=== PATIENT | female | born 1995 | race Caucasian/White ===

== ENCOUNTER 2017-02-05 11:45 | Emergency (ER) ==
[2017-02-05 11:45] VITALS: BMI 58.1
[2017-02-05 11:50] VITALS: BP 182/86; TEMP 98
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
--- NOTE | 2017-02-05 13:44 | DI ---
Exam: Three x-rays of the right foot. Comparison: 02/05/2017. Reason for exam: Pain. FINDINGS: No acute fracture or malalignment. The joint spaces are well maintained. No unexplained calcific soft tissue density or radiopaque retained foreign body. Impression: No acute fracture or dislocation in the right foot
--- NOTE | 2017-02-05 13:44 | DI ---
Exam: Three x-rays of the right ankle. Comparison: None available. Reason for exam: Pain. FINDINGS: No acute fracture or dislocation. The talar dome is intact. There is no abnormal widenin g of the medial or lateral clear space. Moderate amount of soft tissue swelling is seen adjacent to t he ankle. Impression: No acute fracture or malalignment is seen in the right ankle.
== END 2017-02-05 13:29 | disposition home or self-care (01) ==
LOC: ED 11:45
DX: M25.571 Pain in right ankle and joints of right foot (principal); W19.XXXA Unspecified fall, initial encounter
CPT/HCPCS: 99282

== ENCOUNTER 2018-10-09 16:59 | Emergency (ER) ==
[2018-10-09 17:08] VITALS: BP 162/101; TEMP 97.8; BMI 65.2
--- NOTE | 2018-10-09 17:29 | ED.PDOC ---
General ED Provider: Dr. KHOA LAWSON Chief Complaint: Dizziness Stated Complaint: Dizzines worse past week; 2 falls during this period - last one on and then saw Dr. Garcia on Wednesday. Referred to neurologist - apt November. Back pain and headache - thinks back pain is from falls. Headache - hit head (right forehead) times 2 with falls. confirms falls - found her down in bathroom and obvious hit head on bathtub. Says he has to steady her with walking in house. Time Seen by Physician: 17:15 Mode of Arrival: Wheelchair Information Source: Patient Primary Care Provider: JAMES GARCIA Nursing and Triage Documentation Reviewed and Agree: Yes Does patient meet sepsis criteria?: No System Inflammatory Response Syndrome: Not Applicable Sepsis Protocol: For patient's 13 years and over: Temp is 96.8 and below OR 101 and greater Pulse >90 BPM Resp >20/minute Acutely Altered Mental Status Are patient's symptoms suggestive of a new infection, such as: -Pneumonia -Skin, Soft Tissue -Endocarditis -UTI -Bone, Joint Infection -Implantable Device -Acute Abdominal Infection -Wound Infection -Meningitis -Blood Stream Catheter Infection -Unknown Neurological Complaint Exam - Dizziness Complaint/Exam Last Known Well: Severa years ago Duration: Several years; worse last week or so Symptoms Are: Still present Timing: Constant Episodes Lasting: Days Initial Severity: Moderate Current Severity: Moderate Character: Reports: Lightheaded, Weak, Dizzy Aggravating: Reports: None Alleviating: Reports: None Associated Signs and Symptoms: Reports: Nausea Related History: Similar episode (May 23 and two visits [facility]; chart reviewed - similar to present presentaiton; heart rate was noted to historically be elevated 103 to 108 range) Related Surgical History: Reports: None JVD Present: No Carotid Bruit Present: No Review of Systems - Review Of Systems Constitutional: Reports: Weakness Eyes: Reports: Photophobia Respiratory: Reports: No symptoms Cardiac: Reports: No symptoms Musculoskeletal: Reports: Back pain (bt elieves secondary to falls) Skin: Reports: Bruising (slight ecchymosis R forehead) Neurological: Reports: Other (dizziness) All Other Systems: Reviewed and Negative Past Medical History - Past Medical History Previously Healthy: Yes Endocrine: Reports: None Cardiovascular: Reports: None Respiratory: Reports: None Hematological: Reports: None Gastrointestinal: Reports: None Genitourinary: Reports: None Neuro/Psych: Reports: Anxiety, Depression Musculoskeletal: Reports: Other Cancer: Reports: None Last Menstrual Period: 06/11/18 I'm very irreg. - Surgical History General Surgical History: Reports: Appendectomy, Cholecystectomy - Family History Family History: Reports: Unknown - Social History Smoking Status: Current every day smoker Hx Substance Use: No Alcohol Screening: Occasionally Physical Exam - Physical Exam Appearance: Well-appearing Ill-appearing: None Pain Distress: Mild Eyes: HUMBERTO, EOMI (has some difficult breaking fusion of gaze - quickly regains it - all 4 quadrants intact) ENT: Ears normal, Nose normal, Oropharynx normal Neck: Supple Respiratory: Airway patent, Breath sounds clear, Breath sounds equal, Respirations nonlabored Cardiovascular: RRR, Pulses normal GI/: Soft, Nontender Musculoskeletal: Normal strength, ROM intact, No edema Skin: Warm, Dry, Normal color Neurological: Sensation intact, Motor intact, Alert, Oriented Psychiatric: Affect appropriate, Mood appropriate Interpretation - Radiology Interpretation Radiology Interpretation By: Radiologist Radiology Results: Negative Exam Interpreted: CT Scan - EKG Interpretation Time of EKG #1: 17:42 Rate: Tachy (103) Rhythm: Sinus Ectopy: None [place]: NL ST Segment: Normal Interpretation: No acute changes Physician Notification - Case Discussed Physician Notified: Dr Garcia Time of Notification: 19:15 (Hospitalist Korina for admission) Physician Notified: Dr Trevizo/Tyrone Hui Time of Notification: 19:35 Critical Care Note - Critical Care Note Total Time (mins): 35 Comments: CT review;labs, records from [facility]; discussion with Primary Care provider. Course - Course Hematology/Chemistry: 10/09/18 17:39 10/09/18 17:39 Orders, Labs, Meds: Lab Review 10/09/18 10/09/18 10/09/18 17:39 17:39 17:39 WBC 7.58 RBC 4.55 Hgb 13.4 Hct 39.3 MCV 86.4 MCH 29.5 MCHC 34.1 RDW Coeff of [place] 12.4 Plt Count 254 Immature Gran % (Auto) 0.5 Neut % (Auto) 64.5 Lymph % (Auto) 22.7 [place] % (Auto) 8.6 Eos % (Auto) 2.8 Baso % (Auto) 0.9 Immature Gran # (Auto) 0.0 Neut # (Auto) 4.9 Lymph # (Auto) 1.7 [place] # (Auto) 0.7 Eos # (Auto) 0.2 Baso # (Auto) 0.1 Sodium 136.8 Potassium 4.29 Chloride 97.9 L Carbon Dioxide 28.4 Anion Gap 14.79 BUN 7.9 Creatinine 0.62 Estimated GFR (MDRD) 119.00 BUN/Creatinine Ratio 12.74 Glucose 136.3 H Calcium 9.11 Total Bilirubin 0.57 AST 69.8 H ALT 67.9 H Alkaline Phosphatase 80.5 Total Protein 7.52 Albumin 4.32 Globulin 3.20 Albumin/Globulin Ratio 1.35 Serum , Qual Negative Orders Category Date Time Status EKG-(ED ONLY) Stat CARDIO 10/09/18 17:29 Completed CBC W/ AUTO DIFF Stat LAB 10/09/18 17:39 Completed COMPREHENSIVE METABOLIC PANEL Stat LAB 10/09/18 17:39 Completed SERUM TEST [SERUM ] Stat LAB 10/09/18 17:39 Completed Hydromorphone HCl [Dilaudid 1 mg/ml Syringe] MEDS 10/09/18 17:30 Discontinued 1 mg IVP ONCE STA Hydromorphone HCl [Dilaudid 1 mg/ml Syringe] MEDS 10/09/18 19:52 Discontinued 2 mg .ROUTE .STK-MED ONE Hydromorphone HCl/Pf [Dilaudid 4 mg/ml Syringe] MEDS 10/09/18 19:33 Discontinued 2 mg IVP ONCE STA Ondansetron HCl/Pf [Zofran 4 mg/2 ml] MEDS 10/09/18 17:31 Discontinued 4 mg IVP ONCE STA Sodium Chloride 0.9% [Sodium Chloride] 1,000 ml MEDS 10/09/18 17:[address] HEAD W/O CONTRAST Stat RADS 10/09/18 17:32 Completed Medications Discontinued Medications Generic Name Dose Route Start Last Admin Trade Name Freq PRN Reason Stop Dose Admin Hydromorphone HCl 1 mg 10/09/18 17:30 10/09/18 18:00 Dilaudid 1 Mg/Ml Syringe IVP 10/09/18 17:31 1 mg ONCE STA Administration Hydromorphone HCl 2 mg 10/09/18 19:33 10/09/18 20:01 Dilaudid 4 Mg/Ml Syringe IVP 10/09/18 19:34 Not Given ONCE STA Sodium Chloride 1,000 mls @ 1,000 mls/hr 10/09/18 17:30 10/09/18 18:00 Sodium Chloride IV 10/09/18 18:29 1,000 mls/hr BOLUS STA Administration Ondansetron HCl 4 mg 10/09/18 17:31 10/09/18 18:00 Zofran 4 Mg/2 Ml IVP 10/09/18 17:32 4 mg ONCE STA Administration Vital Signs: Temp Pulse Resp BP Pulse Ox 10/09/18 16:59 97.8 F 119 H 20 162/101 H 97 Departure - Departure Time of Disposition: 19:43 Disposition: TSF SHORT-TRM HOSP Discharge Problem: Syncope Qualifiers: Syncope type: unspecified Qualified Code(s): R55 - Syncope and collapse Instructions: Syncope (ED) Condition: Stable Pt referred to PMD for follow-up: Yes (Follow up with primary care after care at [facility]) MP verified?: No (Not applicable) Allergies/Adverse Reactions: Allergies No Known Allergies Allergy (Verified 10/09/18 17:03) Home Medications: Ambulatory Orders Amitriptyline HCl [Elavil] 50 mg PO BEDTIME 10/09/18 Diphenhydramine HCl [Benadryl] 25 mg PO ONCE PRN 10/09/18 Duloxetine HCl [Cymbalta] 60 mg PO DAILY 10/09/18
[2018-10-09] MEDS ORDERED: SODIUM CHLORIDE 1,000 ML IV STA (17:30)
[2018-10-09] MEDS ORDERED: DILAUDID 1 MG/ML SYRINGE IVP STA (17:30)
[2018-10-09] MEDS ORDERED: ZOFRAN 4 MG/2 ML IVP STA (17:31)
--- NOTE | 2018-10-09 18:23 | CT ---
EXAM: CT of the head without contrast History: Headache and dizziness. Comparison: None available. Technique: Multiplanar CT images through the head were obtained without the administration of IV con trast Findings: The visualized paranasal sinuses and mastoid air cells are clear in general. No acute calvarial abno rmalities. Intracranially the ventricular and cisternal spaces are normal in size, shape and configuration for a patient of this age. No dominant mass or midline shift. No hydrocephalous. No acute intracranial hemorrhage or abnormal extraaxial fluid collections. Impression: No acute intracranial process
[2018-10-09] MEDS ORDERED: DILAUDID 4 MG/ML SYRINGE IVP STA (19:33)
[2018-10-09] MEDS ORDERED: DILAUDID 1 MG/ML SYRINGE ONE (19:52)
== END 2018-10-09 20:15 | disposition short-term general hospital (02) ==
LOC: ED 16:59
DX: R55 Syncope and collapse (principal); S00.83XA Contusion of other part of head, initial encounter; W19.XXXA Unspecified fall, initial encounter; R42 Dizziness and giddiness; M54.9 Dorsalgia, unspecified; R51 Headache; R29.6 Repeated falls; R11.0 Nausea; R53.1 Weakness; F17.210 Nicotine dependence, cigarettes, uncomplicated
CPT/HCPCS: 36415; 80053; 84703; 85025; 93005; 93010; 96374; 96375; 96376; 99285